=== PATIENT | female | born 1985 | race Caucasian/White ===

== ENCOUNTER 2017-06-21 19:18 | Emergency (ER) | payer SELFPAY ==
[~2017-06-21] VITALS: Ht 162.6 cm; Wt 77.4 kg
[2017-06-21 22:05] VITALS: BP 130/79
== END 2017-06-21 22:05 | disposition home or self-care (01) | DRG 563 ==
LOC: ED 19:18
DX: M23.91 Unspecified internal derangement of right knee (principal); M25.561 Pain in right knee
CPT/HCPCS: L1830